=== PATIENT | female | born 1940 | race Caucasian/White ===

== ENCOUNTER → 2023-08-23 | Outpatient (CLI) | payer SELFPAY, OTHER ==
--- NOTE | 2023-08-23 08:52 | ECHOCS_ITS ---
Reason For Study: Murmur Procedure This was a 2D Doppler, Color Flow transthoracic echocardiogram. Contrast injection was performed. Exam performed in department. Left Ventricle Normal LV size. Left ventricular systolic function is normal. The left ventricular ejection fraction is 65 %. Stage 1 diastolic dysfunction. No regional wall motion abnormalities noted. Right Ventricle Normal RV size. Normal systolic function. Atria Normal left atrium. Mitral Valve There is moderate mitral annular calcification. Tricuspid Valve Normal tricuspid valve. Aortic Valve Mild focal aortic valve calcification. Pulmonic Valve Normal pulmonic valve. Great Vessels Normal aortic root. The pulmonary artery is normal size. Normal inferior vena cava. Pericardium/Pleural No pericardial effusion. Medication 22 gauge I.V. with prn adaptor inserted into right arm. Diluted definity 1.5ml given slow IV push to enhance endocardial definition. Performed a rapid injection of agitated mix of 9 cc saline and 1cc air to assess for atrial septal defect. MMode/2D Measurements & Calculations LVIDd: 4.3 cm IVSd: 1.3 cm LVOT diam: 1.8 cm LVIDs: 3.0 cm LVPWd: 1.1 cm RVDd: 3.2 cm FS: 31.0 % LVOT area: 2.5 cm2 Ao root diam: 2.8 cm LAV(MOD-bp): 61.2 ml Aortic Valve Planimetry: 0.78 cm2 ACS: 0.84 cm LAV(MOD-bp) Indexed: 35.1 ml/m2 LA dimension: 4.3 cm LAV(MOD-sp2): 75.1 ml LAV(MOD-sp4): 48.1 ml TAPSE: 1.8 cm LA A4 area: 19.9 cm2 RA A4 area: 10.8 cm2 Time Measurements MV dec time: 0.34 sec Doppler Measurements & Calculations MV E max david: 118.5 cm/sec Lat Peak E' David: 6.3 cm/sec Med Peak E' David: 5.3 cm/sec MV A max david: 149.7 cm/sec E/E' lat: 18.9 E/E' med: 22.2 MV E/A: 0.79 MV V2 max: 160.2 cm/sec MV P1/2t max david: 123.2 cm/sec Ao V2 max: 258.3 cm/sec MV max P.3 mmHg MV P1/2t: 106.0 msec Ao max P.7 mmHg MV V2 mean: 88.1 cm/sec MV dec slope: 340.6 cm/sec2 Ao V2 mean: 174.1 cm/sec MV mean P.6 mmHg Ao mean P.0 mmHg MV V2 VTI: 45.7 cm MVA(P1/2t): 2.1 cm2 Ao V2 VTI: 60.8 cm MVA(VTI): 1.5 cm2 AV (velocity ratio): 0.47 KATELIN(I,D): 1.1 cm2 KATELIN(V,D): 1.1 cm2 LV V1 max: 112.6 cm/sec SV(LVOT): 69.6 ml PA V2 max: 103.2 cm/sec LV V1 max P.1 mmHg PA max PG (full): 1.5 mmHg LV V1 mean P.8 mmHg PA V2 mean: 75.4 cm/sec LV V1 mean: 78.4 cm/sec PA mean PG (full): 1.0 mmHg LV V1 VTI: 28.4 cm TR max david: 281.1 cm/sec TR max P.6 mmHg ECHO/Echo Complete W/ Contrast Interpretation Summary Normal LV size. Left ventricular systolic function is normal. The left ventricular ejection fraction is 65 %. Stage 1 diastolic dysfunction. There is moderate mitral annular calcification. Contrast injection was performed. Ordering Physician: Olayinka Lin Referring Physician: Olayinka Lin Performed By: Devyn Ba RCS
== END | disposition home or self-care (01) ==
PROVIDERS: Referring Provider Internal Medicine Cardiovascular Disease; Visit Provider Internal Medicine Cardiovascular Disease
DX: R01.1 Cardiac murmur, unspecified (principal); R06.02 Shortness of breath
CPT/HCPCS: 93306; Q9957; A4216; C8929

== ENCOUNTER → 2024-02-18 | Outpatient (CLI) | payer OTHER, SELFPAY | END | disposition home or self-care (01) | PROVIDERS: Referring Provider Physician Assistant; Visit Provider Physician Assistant | DX: R39.9 Unspecified symptoms and signs involving the genitourinary system (principal) | CPT/HCPCS: 87086 ==

== ENCOUNTER → 2024-07-04 | Outpatient (CLI) | payer OTHER, SELFPAY ==
[2024-07-04 11:03] LABS: Absolute Lymphocyte Count 1.65 X10^3/uL (0.83-4.51); Basophil# 0.04 X10^3/uL; Basophil% 0.7 % (0-1); Eosinophil# 0.16 X10^3/uL; Hematocrit 36.6 % (37-47); Hemoglobin 12.1 g/dL (12.0-15.0); Lymphocyte # 1.65 X10^3/ul (0.83-4.51); Lymphocyte % 30.6 % (19-41); Mean Corp Hgb Conc 33.1 g/dL (32-36); Mean Corpuscular Hgb 31.2 pg (27.0-32.0); Mean Corpuscular Volume 94.3 fL (81-99); Mean Platelet Vol. 9.3 fl (6.2-12.0); Monocyte# 0.59 X10^3/uL; Monocyte% 10.9 % (0-10); NRBC Flagged by Analyzer 0 % (0-5); Neutrophil # 2.95 X10^3/uL (2.7-7.7); Neutrophil % 54.6 % (47-70); Platelet Count 237 K/mm3 (150-450); RBC Distribution Width CV 13.3 % (11.6-14.6); RBC Distribution Width SD 45.8 fl (35.1-43.9); Red Blood Count 3.88 M/mm3 (4.2-5.4); White Blood Count 5.4 K/mm3 (4.4-11.0)
[2024-07-04 11:35] LABS: Anion Gap 11 (5-15); BUN 29 mg/dL (4-19); BUN/Creat Ratio 26.7 RATIO (10-20); Calcium,Total 9.2 mg/dL (7.6-11.0); Carbon Dioxide 22.6 mmol/L (21.0-32.0); Chloride 104 mmol/L (98-108); Creatinine, Serum 1.07 mg/dL (0.70-1.20); EST Glomerular Filtration Rate 52 (>60); Glucose 106 mg/dL (70-99); Potassium 3.9 mmol/L (3.3-5.1); Pro- Brain NATRIURETIC PEPTIDE 494 pg/mL (<=1800); Sodium Level 137 mmol/L (133-145)
== END | disposition home or self-care (01) ==
LOC: LAB 10:47
PROVIDERS: Referring Provider Physician Assistant Medical; Visit Provider Physician Assistant Medical
DX: R01.1 Cardiac murmur, unspecified (principal); R06.02 Shortness of breath
CPT/HCPCS: 36415; 80048; 83880; 85025

== ENCOUNTER → 2024-08-11 | Outpatient (CLI) | payer SELFPAY, OTHER | END | disposition home or self-care (01) | LOC: CVS 15:02 | PROVIDERS: Referring Provider Physician Assistant Medical; Visit Provider Physician Assistant Medical | DX: R06.02 Shortness of breath (principal) | CPT/HCPCS: 93306 ==